=== PATIENT | male | born 1960 | race Caucasian/White ===

== ENCOUNTER 2022-03-10 10:30 | Emergency (ER) | payer OTHER ==
[~2022-03-10] VITALS: Ht 172.7 cm; Wt 85.7 kg
[2022-03-10] MEDS ORDERED: HYDROCODONE/APAP 5-325MG TABLET PO ONE (12:00)
[2022-03-10] MEDS ORDERED: HYDROCODONE/APAP 5-325MG TABLET ONE (12:08)
[2022-03-10] MEDS ORDERED: HYDR-3972 PO (13:10)
--- NOTE | 2022-03-10 14:15 | NUR ---
Gave pt RX and d/c instructions, pt verbalized understanding.
== END 2022-03-10 14:19 | disposition home or self-care (01) ==
LOC: ER 10:30
DX: S13.4XXA Sprain of ligaments of cervical spine, initial encounter (principal); S62.515A Nondisplaced fracture of proximal phalanx of left thumb, initial encounter for closed fracture; S63.642A Sprain of metacarpophalangeal joint of left thumb, initial encounter; V43.54XA Car driver injured in collision with van in traffic accident, initial encounter; Y92.410 Unspecified street and highway as the place of occurrence of the external cause; Y99.0 Civilian activity done for income or pay; E11.9 Type 2 diabetes mellitus without complications; Z79.84 Long term (current) use of oral hypoglycemic drugs
CPT/HCPCS: 70450; 72125; 73100; 73120; 73140; A4663